=== PATIENT | male | born 1945 | race Caucasian/White ===

== ENCOUNTER 2017-12-24 15:20 | Emergency (ER) | payer OTHER, SELFPAY ==
[2017-12-24 15:24] VITALS: BP 146/66; PULSE 83; RESP 20; TEMP 36.5; O2SAT 97
--- NOTE | 2017-12-24 16:05 | DI.CT_ITS ---
SYMPTOM/DIAGNOSIS: LOSS OF VISION RT EYE, ? ACUTE CVA NONCONTRAST HEAD CT: No priors. The ventricles and sulci are consistent with the patient's age. Areas of decreased attenuation are seen in the white matter suggesting small vessel ischemic disease. No acute infarct, intracranial hemorrhage or midline shift or mass effect is identified. The ventricles are intact. The basilar cisterns are patent. There are post surgical changes seen in the right maxillary sinus. There is near complete opacification of the sphenoid sinuses bilaterally. There is high density material within the sphenoid sinuses. This may represent fungal infection or inspissated secretions. There is significant opacification of the right maxillary sinus cavity. There is high density material seen within the cavity. This may again represent fungal infection or inspissated secretions. The mastoid air cells are well pneumatized. The calvarium is intact. IMPRESSION: 1. No acute intracranial process. 2. Jackson sinusitis.
--- NOTE | 2017-12-24 16:07 | W.ED.GENAD ---
Discharge Plan Disposition Patient Disposition: HOME Condition: Stable Discharge Details Chief Complaint: EyeProblem Clinical Impression: Retinal detachment Primary Care Provider: FACUNDO,LOCAL ED Provider: Socorro Ruff Home Meds and New Rx's Prescriptions: Continue multivitamin Tablet 1 tab PO DAILY RF: 0 carvedilol [Coreg] 12.5 mg Tablet PO DAILY RF: 0 trazodone 50 mg Tablet PO HS RF: 0 aspirin 81 mg Tablet,Delayed Release (Dr/Ec) 81 mg PO DAILY RF: 0 potassium chloride 20 mEq Packet PO DAILY RF: 0 furosemide [Lasix] 80 mg Tablet 80 mg PO BID RF: 0 paroxetine HCl [Paxil] 20 mg Tablet PO DAILY RF: 0 pantoprazole [Protonix] 40 mg Tablet,Delayed Release (Dr/Ec) PO DAILY RF: 0 glipizide 5 mg Tablet PO DAILY RF: 0 amiodarone 100 mg Tablet PO DAILY RF: 0 liraglutide [Victoza 2-Seng] 0.6 mg/0.1 mL (18 mg/3 mL) Pen Injector 1.8 mg subcut DAILY RF: 0 magnesium chloride [Slow-Mag] 71.5 mg Tablet,Delayed Release (Dr/Ec) 2 tab PO TID RF: 0 apixaban [Eliquis] 5 mg Tablet PO BID RF: 0 insulin degludec [Tresiba FlexTouch U-100] 100 unit/mL (3 mL) Insulin Pen 18 units subcut DAILY RF: 0 Discharge Instructions Instructions: Retinal Detachment (GEN) Additional Instructions: Call your retinal specialist Dr. Stoney Franz tomorrow to schedule a follow-up appointment for as early as possible early next week for evaluation of what appears to be a retinal detachment in your right eye. Return immediately to the emergency department here or in [place] with any concerns. Discharge Data Discharge Date/Time-TO BE ENTERED AT DEPARTURE: 12/24/17 18:07 Discharge Physician: Socorro Ruff Medical Decision Making 72-year-old male with a history of retinal detachment in 2010 presents with sudden loss of vision in right eye since 11 AM today. Patient states he was reading when he had a sensation that a curtain was being pulled over his right eye. Patient states he cannot see the left side of his vision in his right eye but is able to see the right side peripheral vision. OS 20/50, OD blurry, OU 20/50 Blood pressure hypertensive but otherwise vitals within normal limits. Patient appears nontoxic and in no acute distress. He is easily amatory around room and conversing without difficulty. Bedside ultrasound done on right eye and notes what appears to be a retinal detachment. No obvious afferent pupillary defect. No eye pain, and normal conjunctive, pupil with no steamy cornea noted. Limited funduscopic exam reveals no papilledema in any other acute findings but is limited due to lack of dilation. No other focal deficits on exam. Due to patient's age and history, sent for stat CT head and labs. 1699 --CT head and labs unremarkable for acute findings. 1714 --[facility] ophthalmology Dr. Jane - states that pt can come to [facility] now and she will evaluate in ophtho clinic. States likely no retinal surgery would be done until Tuesday if indicated or detachment noted. Discussed that patient is visiting from [place] and she states patient could be evaluated there early next week. Plan was discussed with patient and family at bedside -patient is driving back to [place] tomorrow. He states he would rather go back to there if he needs any surgery as he is followed by ophthalmology retinal specialist Dr. Stoney Franz in [place], [place]. states she will call his office tomorrow and speak to the physician on-call with plans for follow-up early next week. The risks of permanent loss of vision due to detachment were discussed and that they need to urgently follow up with Dr. Franz and pt and family fully understand these risks and demonstrate capacity to make decisions. We will send with labs and imaging results. Instructed to return with any concerns. HPI General Mode of arrival: ambulatory. Date/Time Provider Initiated Documentation: 12/24/17 16:05. Limitations to Documentation: no limitations. Information obtained by: patient. HPI Narrative: Patient is a 72-year-old male with a history of previous retinal detachment 2010 who presents with loss of vision in right eye since 11 AM today. Patient states he was sitting reading when he felt what appeared to be a curtain pulled over his right eye. Patient states he cannot see the left side of his vision in his right eye but is able to see the right side of the vision in his right eye although it is blurry. He denies pain. He states the symptoms are similar to his previous retinal detachment. Patient states he had previous surgery in 2010 for his retinal detachment which involved a laser and injections. Patient states he is visiting from [place]. He otherwise denies headache, dizziness, extremity weakness or numbness. Past medical history: Atrial fibrillation, diabetes, CAD, CHF, hypertension, hyperlipidemia, [place], obstructive sleep apnea Surgical history: Carotid stent x2, appendectomy, cholecystectomy, tonsillectomy, Retinal detachment with laser/injection repair 2010 Social history: Denies tobacco, alcohol, drugs Medication: Eliquis, aspirin, see list Allergies: Penicillin, Cipro PCP: Christopher PRINCE) Related Data Home Medications Medication Instructions Recorded Confirmed amiodarone mg PO DAILY 12/24/17 apixaban [Eliquis] mg PO BID 12/24/17 aspirin 81 mg PO DAILY 12/24/17 12/24/17 carvedilol [Coreg] mg PO DAILY 12/24/17 furosemide [Lasix] 80 mg PO BID 12/24/17 12/24/17 glipizide mg PO DAILY 12/24/17 insulin degludec [Tresiba 18 units SUBCUT DAILY 12/24/17 12/24/17 FlexTouch U-100] liraglutide [Victoza 2-Seng] 1.8 mg SUBCUT DAILY 12/24/17 12/24/17 magnesium chloride [Slow-Mag] 2 tab PO TID 12/24/17 12/24/17 multivitamin 1 tab PO DAILY 12/24/17 12/24/17 pantoprazole [Protonix] mg PO DAILY 12/24/17 paroxetine HCl [Paxil] mg PO DAILY 12/24/17 potassium chloride mg PO DAILY 12/24/17 trazodone mg PO HS 12/24/17 Allergies Allergy/AdvReac Type Severity Reaction Status Date / Time amoxicillin AdvReac Diarrhea Unverified 12/24/17 15:26 ciprofloxacin [From Cipro] AdvReac Diarrhea Unverified 12/24/17 15:26 General Stated Complaint: EyeProblem ESTRELLA: 2 Review of Systems Review of Systems All systems reviewed & are unremarkable except as noted in HPI and below PFSH Social History Smoking/Tobacco Use Status: Never Exam Const General: cooperative and healthy appearing Orientation: alert and awake HENAK Head: normal to inspection Ears: hearing grossly normal bilaterally and external ears normal General nose exam: external nose normal Face and sinus: normal facial exam Mouth: oral mucosae normal Throat: posterior oropharynx normal Eyes General: appearance normal, both eyes and all related structures Eyelids: eyelids normal Pupils: PERRL EOM: EOM intact bilaterally Other: No obvious afferent pupillary defect noted. Retinal detachment noted with bedside ultrasound on right. No papilledema, but with limited funduscopic exam. Neck Neck: normal visual inspection Lymphatic: no lymphadenopathy noted Chest Chest: normal inspection of the chest Resp Effort & Inspection: normal respiratory effort and able to speak in complete sentences Auscultation: clear to auscultation bilaterally Cardio Rate: regular rate Rhythm: regular rhythm GI Inspection: normal to inspection Palpation: soft, not firm, no guarding, no hepatosplenomegaly, no masses and nontender Auscultation: normal bowel sounds Skin General skin exam: no rashes or lesions noted Neuro General: alert and awake Cranial Nerves: other (Cranial nerves III through XII intact grossly) Cognition: normal cognition Speech: speech normal Gait: normal gait Motor: muscle tone normal throughout and strength 5/5 throughout Sensory Exam: no sensory deficits noted Extrem General: normal to inspection, full ROM and normal capillary refill Psych Appearance: grossly normal Mental Status: mental status grossly normal Speech and Movement: speech and movement normal Affect: normal affect Thought Process: normal Course Vital Signs Temperature 97.7 F 12/24/17 15:24 Pulse 83 12/24/17 15:24 Respiratory Rate 20 12/24/17 15:24 Blood Pressure 146/66 H 12/24/17 15:24 Pulse Oximetry 97 12/24/17 15:24 Temperature 97.7 F 12/24/17 15:24 Temperature Source Temporal Artery Scan 12/24/17 15:24 Pulse 83 12/24/17 15:24 Respiratory Rate 20 12/24/17 15:24 Respiratory Effort Non-Labored 12/24/17 15:31 Blood Pressure 146/66 H 12/24/17 15:24 Pulse Oximetry 97 12/24/17 15:24 Oxygen Delivery Method Room Air 12/24/17 15:24 Oxygen Flow Rate 0 12/24/17 15:24 Pain Level 0 12/24/17 15:24
[2017-12-24 16:24] LABS: Absolute Basophil Count 0.02 k/cumm (0.0-0.2); Absolute Eosinophil Count 0.25 k/cumm (0.0-0.7); Absolute Lymphocyte Count 0.92 k/cumm (1.2-3.4); Absolute Monocyte Count 0.65 k/cumm (0.11-0.7); Basophils % 0.4; Eosinophils % 5.1; HCT 34.7 % (40.0-50.0); HGB 11.1 g/dL (13.5-17.5); Lymphocytes % 18.6; Mean Corpuscular Hemoglobin 32.8 pg (27.0-33.0); Mean Corpuscular Volume 102.7 fL (80-95); Mean Platelet Volume 10.4 fL (8.0-11.0); Monocytes % 13.2; Neutrophils % 62.7; Platelet Count 122 x1000/uL (130-400); RBC 3.38 m/cumm (4.50-6.00); RBC Distribution Width 12.3 % (11.8-14.1); White Blood Cell Count 4.94 k/cumm (4.4-10.8)
[2017-12-24 16:36] LABS: ALT 38 U/L (12-78); AST 29 U/L (15-37); Albumin 3.1 g/dL (3.4-5.0); Alkaline Phosphatase 117 U/L (46-116); BUN 23 mg/dL (7-18); Bilirubin, Total 0.5 mg/dL (0.2-1.0); CREATININE 1.18 mg/dL (0.70-1.30); Calcium 8.4 mg/dL (8.5-10.1); Chloride 105 mmol/L (98-107); Glucose 146 mg/dL (70-100); Magnesium 2.2 mg/dL (1.8-2.4); Sodium 141 mmol/L (136-145); Total Protein 6.6 g/dL (6.4-8.2); Troponin I 0.05 ng/mL (0.00-0.06)
[2017-12-24 16:43] LABS: INR 1.2 (1.0-3.5); PTT Activated 25.9 sec (21.0-31.4); Prothrombin Time 11.4 sec (9.3-10.8)
--- NOTE | 2017-12-24 17:10 | DI.VRAD_ITS ---
EXAM: CT Head Without Intravenous Contrast CLINICAL HISTORY: 72 years old, male; Signs and symptoms; Visual disturbance; Patient HX: R eye lost vision TECHNIQUE: Axial computed tomography images of the head/brain without intravenous contrast. Coronal and sagittal reformatted images were created and reviewed. COMPARISON: No relevant prior studies available. FINDINGS: Brain: No intracranial hemorrhage or extra-axial fluid collection. No evidence of mass effect or midline shift. Morin-white matter differentiation is normal. Ventricles: Unremarkable. No ventriculomegaly. Bones/joints: Unremarkable. No acute fracture. Soft tissues: Unremarkable. Sinuses: Near-complete opacification of the ethmoid, sphenoid, frontal, and right maxillary sinuses. Chronic postoperative changes compatible with right maxillary sinus surgery. Mastoid air cells: Unremarkable as visualized. No mastoid effusion. IMPRESSION: 1. No acute intracranial pathology. 2. Pansinusitis. Dictated and Authenticated by: Connor Roldan MD. Ordering:JUAN HADDAD MD
--- NOTE | 2017-12-24 17:29 | ED.GENADUL_ITS ---
Discharge Plan Disposition Patient Disposition: HOME Condition: Stable Discharge Details Chief Complaint: EyeProblem Clinical Impression: Retinal detachment Primary Care Provider: FACUNDO,LOCAL ED Provider: Socorro Ruff Home Meds and New Rx's Prescriptions: Continue multivitamin Tablet 1 tab PO DAILY RF: 0 carvedilol [Coreg] 12.5 mg Tablet PO DAILY RF: 0 trazodone 50 mg Tablet PO HS RF: 0 aspirin 81 mg Tablet,Delayed Release (Dr/Ec) 81 mg PO DAILY RF: 0 potassium chloride 20 mEq Packet PO DAILY RF: 0 furosemide [Lasix] 80 mg Tablet 80 mg PO BID RF: 0 paroxetine HCl [Paxil] 20 mg Tablet PO DAILY RF: 0 pantoprazole [Protonix] 40 mg Tablet,Delayed Release (Dr/Ec) PO DAILY RF: 0 glipizide 5 mg Tablet PO DAILY RF: 0 amiodarone 100 mg Tablet PO DAILY RF: 0 liraglutide [Victoza 2-Seng] 0.6 mg/0.1 mL (18 mg/3 mL) Pen Injector 1.8 mg subcut DAILY RF: 0 magnesium chloride [Slow-Mag] 71.5 mg Tablet,Delayed Release (Dr/Ec) 2 tab PO TID RF: 0 apixaban [Eliquis] 5 mg Tablet PO BID RF: 0 insulin degludec [Tresiba FlexTouch U-100] 100 unit/mL (3 mL) Insulin Pen 18 units subcut DAILY RF: 0 Discharge Instructions Instructions: Retinal Detachment (GEN) Additional Instructions: Call your retinal specialist Dr. Stnoey Franz tomorrow to schedule a follow- up appointment for as early as possible early next week for evaluation of what appears to be a retinal detachment in your right eye. Return immediately to the emergency department here or in [place] with any concerns. Discharge Data Discharge Date/Time-TO BE ENTERED AT DEPARTURE: 12/24/17 18:07 Discharge Physician: Socorro Ruff Medical Decision Making 72-year-old male with a history of retinal detachment in 2010 presents with sudden loss of vision in right eye since 11 AM today. Patient states he was reading when he had a sensation that a curtain was being pulled over his right eye. Patient states he cannot see the left side of his vision in his right eye but is able to see the right side peripheral vision. OS 20/50, OD blurry, OU 20/50 Blood pressure hypertensive but otherwise vitals within normal limits. Patient appears nontoxic and in no acute distress. He is easily amatory around room and conversing without difficulty. Bedside ultrasound done on right eye and notes what appears to be a retinal detachment. No obvious afferent pupillary defect. No eye pain, and normal conjunctive, pupil with no steamy cornea noted. Limited funduscopic exam reveals no papilledema in any other acute findings but is limited due to lack of dilation. No other focal deficits on exam. Due to patient's age and history, sent for stat CT head and labs. 1699 --CT head and labs unremarkable for acute findings. 1714 --[facility] ophthalmology Dr. Jane - states that pt can come to [facility] now and she will evaluate in ophtho clinic. States likely no retinal surgery would be done until Tuesday if indicated or detachment noted. Discussed that patient is visiting from [place] and she states patient could be evaluated there early next week. Plan was discussed with patient and family at bedside -patient is driving back to [place] tomorrow. He states he would rather go back to there if he needs any surgery as he is followed by ophthalmology retinal specialist Dr. Stoney Franz in [place], [place]. states she will call his office tomorrow and speak to the physician on-call with plans for follow-up early next week. The risks of permanent loss of vision due to detachment were discussed and that they need to urgently follow up with Dr. Franz and pt and family fully understand these risks and demonstrate capacity to make decisions. We will send with labs and imaging results. Instructed to return with any concerns. HPI General Mode of arrival: ambulatory . Date/Time Provider Initiated Documentation: 12/24/17 16:05 . Limitations to Documentation: no limitations . Information obtained by: patient . HPI Narrative: Patient is a 72-year-old male with a history of previous retinal detachment 2010 who presents with loss of vision in right eye since 11 AM today. Patient states he was sitting reading when he felt what appeared to be a curtain pulled over his right eye. Patient states he cannot see the left side of his vision in his right eye but is able to see the right side of the vision in his right eye although it is blurry. He denies pain. He states the symptoms are similar to his previous retinal detachment. Patient states he had previous surgery in 2010 for his retinal detachment which involved a laser and injections. Patient states he is visiting from [place]. He otherwise denies headache, dizziness, extremity weakness or numbness. Past medical history: Atrial fibrillation, diabetes, CAD, CHF, hypertension, hyperlipidemia, [place], obstructive sleep apnea Surgical history: Carotid stent x2, appendectomy, cholecystectomy, tonsillectomy , Retinal detachment with laser/injection repair 2010 Social history: Denies tobacco, alcohol, drugs Medication: Eliquis, aspirin, see list Allergies: Penicillin, Cipro PCP: Christopher PRINCE) Related Data Home Medications Medication Instructions Recorded Confirmed amiodarone mg PO DAILY 12/24/17 apixaban [Eliquis] mg PO BID 12/24/17 aspirin 81 mg PO DAILY 12/24/17 12/24/17 carvedilol [Coreg] mg PO DAILY 12/24/17 furosemide [Lasix] 80 mg PO BID 12/24/17 12/24/17 glipizide mg PO DAILY 12/24/17 insulin degludec [Tresiba 18 units SUBCUT DAILY 12/24/17 12/24/17 FlexTouch U-100] liraglutide [Victoza 2-Seng] 1.8 mg SUBCUT DAILY 12/24/17 12/24/17 magnesium chloride [Slow-Mag] 2 tab PO TID 12/24/17 12/24/17 multivitamin 1 tab PO DAILY 12/24/17 12/24/17 pantoprazole [Protonix] mg PO DAILY 12/24/17 paroxetine HCl [Paxil] mg PO DAILY 12/24/17 potassium chloride mg PO DAILY 12/24/17 trazodone mg PO HS 12/24/17 Allergies Allergy/AdvReac Type Severity Reaction Status Date / Time amoxicillin AdvReac Diarrhea Unverified 12/24/17 15:26 ciprofloxacin [From Cipro] AdvReac Diarrhea Unverified 12/24/17 15:26 General Stated Complaint: EyeProblem ESTRELLA: 2 Review of Systems Review of Systems All systems reviewed & are unremarkable except as noted in HPI and below PFSH Social History Smoking/Tobacco Use Status: Never Exam Const General: cooperative and healthy appearing Orientation: alert and awake HENHI Head: normal to inspection Ears: hearing grossly normal bilaterally and external ears normal General nose exam: external nose normal Face and sinus: normal facial exam Mouth: oral mucosae normal Throat: posterior oropharynx normal Eyes General: appearance normal, both eyes and all related structures Eyelids: eyelids normal Pupils: PERRL EOM: EOM intact bilaterally Other: No obvious afferent pupillary defect noted. Retinal detachment noted with bedside ultrasound on right. No papilledema, but with limited funduscopic exam. Neck Neck: normal visual inspection Lymphatic: no lymphadenopathy noted Chest Chest: normal inspection of the chest Resp Effort & Inspection: normal respiratory effort and able to speak in complete sentences Auscultation: clear to auscultation bilaterally Cardio Rate: regular rate Rhythm: regular rhythm GI Inspection: normal to inspection Palpation: soft, not firm, no guarding, no hepatosplenomegaly, no masses and nontender Auscultation: normal bowel sounds Skin General skin exam: no rashes or lesions noted Neuro General: alert and awake Cranial Nerves: other (Cranial nerves III through XII intact grossly) Cognition: normal cognition Speech: speech normal Gait: normal gait Motor: muscle tone normal throughout and strength 5/5 throughout Sensory Exam: no sensory deficits noted Extrem General: normal to inspection, full ROM and normal capillary refill Psych Appearance: grossly normal Mental Status: mental status grossly normal Speech and Movement: speech and movement normal Affect: normal affect Thought Process: normal Course Vital Signs Temperature 97.7 F 12/24/17 15:24 Pulse 83 12/24/17 15:24 Respiratory Rate 20 12/24/17 15:24 Blood Pressure 146/66 H 12/24/17 15:24 Pulse Oximetry 97 12/24/17 15:24 Temperature 97.7 F 12/24/17 15:24 Temperature Source Temporal Artery Scan 12/24/17 15:24 Pulse 83 12/24/17 15:24 Respiratory Rate 20 12/24/17 15:24 Respiratory Effort Non-Labored 12/24/17 15:31 Blood Pressure 146/66 H 12/24/17 15:24 Pulse Oximetry 97 12/24/17 15:24 Oxygen Delivery Method Room Air 12/24/17 15:24 Oxygen Flow Rate 0 12/24/17 15:24 Pain Level 0 12/24/17 15:24
== END 2017-12-24 18:07 | disposition home or self-care (01) ==
PROVIDERS: Emergency Provider Physician Assistant
DX: H33.21 Serous retinal detachment, right eye (principal); I10 Essential (primary) hypertension; E11.9 Type 2 diabetes mellitus without complications; Z79.4 Long term (current) use of insulin
CPT/HCPCS: 36415; 80053; 99284; 70450; 83735; 84484; 85025; 85610; 85730